=== PATIENT | male | born 1945 | race African-American/Black ===

== ENCOUNTER 2017-05-28 23:35 | Inpatient (IN) | payer OTHER, MEDICAID ==
[~2017-05-28] VITALS: Ht 177.8 cm; Wt 118.6 kg
[2017-05-29 07:58] LABS: BASOPHILS % 0.7 % (0.0-2.0); EOSINOPHILS % 1.6 % (0.0-5.0); HEMATOCRIT. 42.2 % (42.0-52.0); HEMOGLOBIN. 14.1 g/dL (14.0-18.0); LYMPHOCYTES % 38.1 % (20.0-50.0); MEAN CORPUSCULAR HEMOGLOBIN 31.7 pg (28.0-32.0); MEAN CORPUSCULAR VOLUME 94.6 fL (80.0-94.0); MONOCYTES % 7.7 % (2.0-8.0); NEUTROPHILS % 51.9 % (40.0-76.0); PLATELET 154 x1000/uL (130-400); RED BLOOD CELL COUNT 4.46 mill/uL (4.7-6.1); RED CELL DISTRIBUTION WIDTH 14.2 % (11.6-14.6)
[2017-05-29 08:05] LABS: INR 1.2; PARTIAL THROMBOPLASTIN TIME 25.7 sec (23.4-31.0); PROTHROMBIN TIME 12.7 sec (9.4-11.6)
[2017-05-29 08:22] LABS: CARBON DIOXIDE 26 mEq/L (21-32); CHLORIDE 103 mEq/L (98-107)
[2017-05-29 08:25] LABS: TROPONIN I 0.02 ng/mL (0.00-0.04)
[2017-05-29] MEDS ORDERED: CEFTRIAXONE 2 G PREMIX 50 ML IV ONE (08:45)
[2017-05-29] MEDS ORDERED: AZITHROMYCIN 500 MG in DEXT 5% WATER 250 ML IV ONE (08:45)
[2017-05-29] MEDS ORDERED: ONDANSETRON HCL 4MG/2ML VIAL IV PRN (10:30)
[2017-05-29] MEDS ORDERED: MAGNESIUM/ALUMINUM HYDROXIDE/SIMETHICONE 30ML UDC PO PRN (10:30)
[2017-05-29] MEDS ORDERED: DOCUSATE SODIUM 100MG CAPSULE PO PRN (10:30)
[2017-05-29] MEDS ORDERED: IPRATROPIUM/ALBUTEROL 0.5-3(2.5)MG/3ML NEB INH PRN (10:30)
[2017-05-29] MEDS ORDERED: LORAZEPAM 2MG/ML CPJ IV PRN (10:30)
[2017-05-29] MEDS ORDERED: DIPHENHYDRAMINE 50MG/ML VIAL IV PRN (10:30)
[2017-05-29] MEDS ORDERED: ACETAMINOPHEN 325MG TABLET PO PRN (10:30)
[2017-05-29] MEDS ORDERED: IOHEXOL-350 100 ML BOTTLE ONE (11:38)
[2017-05-29 12:51] LABS: CHLORIDE 102 mEq/L (98-107)
[2017-05-29 12:59] LABS: CARBON DIOXIDE 28 mEq/L (21-32)
[2017-05-29] MEDS ORDERED: LEVOFLOXACIN 500MG PREMIX 100 ML IV NR (13:03)
[2017-05-29] MEDS: LEVOFLOXACIN 500MG PREMIX 100 ML IV SCH (13:20)
[2017-05-29 19:30] VITALS: BP 163/79
[2017-05-29 20:00] VITALS: BP 191/114
[2017-05-29] MEDS ORDERED: NA PHOS,M-B/NA PHOS,DI-BA ENEMA 118ML PR PRN (21:00)
[2017-05-29] MEDS: HYDROCODONE/ACETAMINOPHEN 5/325MG TABLET PO PRN (22:34)
[2017-05-30] VITALS (7 sets, daily range): BP systolic 125–179; BP diastolic 73–93
[2017-05-30 06:24] LABS: BASOPHILS % 0.5 % (0.0-2.0); EOSINOPHILS % 2.1 % (0.0-5.0); HEMOGLOBIN. 13.1 g/dL (14.0-18.0); LYMPHOCYTES % 46.8 % (20.0-50.0); MEAN CORPUSCULAR HEMOGLOBIN 31.8 pg (28.0-32.0); MEAN CORPUSCULAR VOLUME 94.8 fL (80.0-94.0); MEAN PLATELET VOLUME 9.9 fl (7.4-10.4); MONOCYTES % 7.9 % (2.0-8.0); NEUTROPHILS % 42.7 % (40.0-76.0); PLATELET 116 x1000/uL (130-400); RED BLOOD CELL COUNT 4.12 mill/uL (4.7-6.1); RED CELL DISTRIBUTION WIDTH 13.8 % (11.6-14.6)
[2017-05-30 08:38] LABS: CHLORIDE 105 mEq/L (98-107)
[2017-05-30] MEDS: CLONIDINE 0.1MG TABLET PO PRN ×2 (09:14→18:41)
[2017-05-30] MEDS: GUAIFENESIN 200MG/10ML SUGAR FREE UDC PO PRN ×2 (09:14→21:19)
[2017-05-30] MEDS: MORPHINE SULFATE 4 MG/ML CPJ (NOT FOR IM USE) IV PRN ×3 (09:15→18:42)
[2017-05-30 09:38] LABS: CARBON DIOXIDE 25 mEq/L (21-32); HDL CHOLESTEROL 35 mg/dL (40-59); LDL CHOLESTEROL 68 mg/dL (5-100)
[2017-05-30] MEDS ORDERED: POTASSIUM CHLORIDE 20MEQ TABLET SR PO NR (11:00)
[2017-05-30] MEDS: ENOXAPARIN 30MG/0.3ML SYR SUBCUT SCH ×2 (11:30→21:15)
[2017-05-30] MEDS ORDERED: INFLUENZA VIRUS VACCINE 0.5ML SYR IM ONE (12:00)
[2017-05-30 12:17] LABS: T4 FREE 1.04 ng/dL (0.76-1.46)
[2017-05-30 14:11] LABS: CLARITY URINE TURBID (CLEAR); COLOR URINE DARK YELLOW (YELLOW); KETONES URINE NEGATIVE (NEGATIVE); LEUKOCYTE ESTERASE URINE TRACE (NEGATIVE); NITRITE URINE NEGATIVE (NEGATIVE); OCCULT BLOOD URINE NEGATIVE (NEGATIVE); PH URINE 5.5 (4.5-8.0); PROTEIN URINE TRACE (NEGATIVE); SPECIFIC GRAVITY URINE 1.024 (1.005-1.030); UROBILINOGEN URINE 0.2 E.U./dL (0.2-1.0)
[2017-05-30] MEDS: METHYLPREDNISOLONE SOD SUCC 40 MG/ML VIAL IV SCH ×2 (14:17→21:56)
[2017-05-30] MEDS: NICOTINE 14MG PATCH TD SCH (14:18)
[2017-05-30] MEDS: LEVOFLOXACIN 500MG PREMIX 100 ML IV SCH (14:19)
[2017-05-30 14:36] LABS: *AMPHETAMINES SCREEN URINE NEGATIVE (NEGATIVE); *BARBITURATES SCREEN URINE NEGATIVE (NEGATIVE); *BENZODIAZEPINES SCREEN URINE NEGATIVE (NEGATIVE); *COCAINE SCREEN URINE NEGATIVE (NEGATIVE); CANNABINOID URINE SCREEN NEGATIVE (NEGATIVE); METHADONE URINE SCREEN NEGATIVE (NEGATIVE); OPIATES URINE SCREEN PRESUMTIVE POSITIVE (NEGATIVE); PHENCYCLIDINE URINE SCREEN NEGATIVE (NEGATIVE)
[2017-05-30] MEDS: IPRATROPIUM/ALBUTEROL 0.5-3(2.5)MG/3ML NEB HHN SCH ×2 (15:55→20:48)
[2017-05-30 17:14] LABS: AMMONIA 41 uMol/L (<32)
[2017-05-30 17:40] LABS: CREATINE KINASE 106 IU/L (39-308); CREATINE KINASE MB FRACTION 1.6 ng/mL (0.5-3.6); TROPONIN I < 0.02 ng/mL (0.00-0.04)
[2017-05-30] MEDS: BUDESONIDE 0.5MG/2ML NEB HHN SCH (20:48)
[2017-05-31] MEDS: IPRATROPIUM/ALBUTEROL 0.5-3(2.5)MG/3ML NEB HHN SCH ×4 (00:10→20:53)
[2017-05-31 00:32] VITALS: BP 159/83
[2017-05-31 01:26] LABS: CREATINE KINASE 86 IU/L (39-308); CREATINE KINASE MB FRACTION 1.6 ng/mL (0.5-3.6); TROPONIN I < 0.02 ng/mL (0.00-0.04)
[2017-05-31 04:00] VITALS: BP 180/99
[2017-05-31] MEDS: CLONIDINE 0.1MG TABLET PO PRN ×3 (04:55→17:24)
[2017-05-31] MEDS: MORPHINE SULFATE 4 MG/ML CPJ (NOT FOR IM USE) IV PRN (05:11)
[2017-05-31] MEDS: METHYLPREDNISOLONE SOD SUCC 40 MG/ML VIAL IV SCH ×2 (06:38→13:19)
[2017-05-31 08:00] VITALS: BP 174/88
[2017-05-31] MEDS: BUDESONIDE 0.5MG/2ML NEB HHN SCH ×2 (08:19→20:53)
[2017-05-31 08:58] LABS: CREATINE KINASE 76 IU/L (39-308); CREATINE KINASE MB FRACTION 1.6 ng/mL (0.5-3.6); TROPONIN I < 0.02 ng/mL (0.00-0.04)
[2017-05-31] MEDS: ENOXAPARIN 30MG/0.3ML SYR SUBCUT SCH ×2 (09:52→21:04)
[2017-05-31] MEDS: AMLODIPINE 10MG TABLET PO SCH (09:52)
[2017-05-31] MEDS: NICOTINE 14MG PATCH TD SCH (09:52)
[2017-05-31 11:50] VITALS: BP 169/99
[2017-05-31] MEDS: HYDRALAZINE HCL 50MG TABLET PO SCH ×2 (13:23→21:03)
[2017-05-31] MEDS: HYDROCODONE/ACETAMINOPHEN 5/325MG TABLET PO PRN (14:28)
[2017-05-31] MEDS: LACTULOSE 20G/30ML UDC PO SCH (14:28)
[2017-05-31] MEDS: GUAIFENESIN 200MG/10ML SUGAR FREE UDC PO PRN (14:28)
[2017-05-31 15:20] VITALS: BP 170/93
[2017-05-31 20:03] VITALS: BP 134/81
[2017-05-31] MEDS ORDERED: PREDNISONE 20MG TABLET PO SCH (21:00)
[2017-05-31] MEDS ORDERED: METHYLPREDNISOLONE SOD SUCC 40 MG/ML VIAL IV SCH (21:00)
[2017-06-01 00:55] VITALS: BP 124/63
[2017-06-01] MEDS: IPRATROPIUM/ALBUTEROL 0.5-3(2.5)MG/3ML NEB HHN SCH ×2 (01:43→09:30)
[2017-06-01 04:00] VITALS: BP 151/85
[2017-06-01] MEDS: HYDRALAZINE HCL 50MG TABLET PO SCH ×2 (06:18→13:17)
[2017-06-01 06:25] LABS: HEMATOCRIT 38.9 % (42.0-52.0); HEMOGLOBIN 13.1 g/dL (14.0-18.0); MEAN CORPUSCULAR HEMOGLOBIN 32.2 pg (28.0-32.0); MEAN CORPUSCULAR VOLUME 95.5 fL (80.0-94.0); PLATELET 129 x1000/uL (130-400); RED BLOOD CELL COUNT 4.07 mill/uL (4.7-6.1); RED CELL DISTRIBUTION WIDTH 14.1 % (11.6-14.6)
[2017-06-01 07:25] LABS: CHLORIDE 105 mEq/L (98-107)
[2017-06-01] MEDS ORDERED: GUAIFENESIN/CODEINE 100-10MG/5ML UDC PO NR (07:45)
[2017-06-01 07:46] LABS: CARBON DIOXIDE 23 mEq/L (21-32)
[2017-06-01] MEDS: LACTULOSE 20G/30ML UDC PO SCH (07:58)
[2017-06-01] MEDS: ENOXAPARIN 30MG/0.3ML SYR SUBCUT SCH (07:58)
[2017-06-01 08:02] VITALS: BP 164/94
[2017-06-01] MEDS: NICOTINE 14MG PATCH TD SCH (08:08)
[2017-06-01] MEDS: AMLODIPINE 10MG TABLET PO SCH (08:09)
[2017-06-01 11:58] VITALS: BP 164/72
[2017-06-01] MEDS: BUDESONIDE 0.5MG/2ML NEB HHN SCH (12:15)
[2017-06-01 15:00] VITALS: BP 132/70
== END 2017-06-01 16:30 | disposition home or self-care (01) | DRG 193 ==
LOC: ER 05-29 00:16 → 6WST 05-29 08:52 → EDBEDREQTM 05-29 08:54 → EDBEDREQ 05-29 08:54 → ENRESERV 05-29 16:35
PROVIDERS: ADMIT Internal Medicine; ATTEND Internal Medicine
DX: J12.9 Viral pneumonia, unspecified (principal); J96.00 Acute respiratory failure, unspecified whether with hypoxia or hypercapnia; D69.59 Other secondary thrombocytopenia; E87.70 Fluid overload, unspecified; J44.0 Chronic obstructive pulmonary disease with (acute) lower respiratory infection; I11.9 Hypertensive heart disease without heart failure; K70.30 Alcoholic cirrhosis of liver without ascites; D50.9 Iron deficiency anemia, unspecified; F10.10 Alcohol abuse, uncomplicated; I25.10 Atherosclerotic heart disease of native coronary artery without angina pectoris; R73.9 Hyperglycemia, unspecified; E87.6 Hypokalemia; M71.22 Synovial cyst of popliteal space [Baker], left knee; E78.5 Hyperlipidemia, unspecified; F17.210 Nicotine dependence, cigarettes, uncomplicated; Z82.49 Family history of ischemic heart disease and other diseases of the circulatory system; Z86.718 Personal history of other venous thrombosis and embolism
CPT/HCPCS: 36415; 71045; 71275; 80048; 80053; 80061; 80305; 81001; 82140; 82270; 82550; 82553; 83036; 83605; 83690; 83735; 83880; 84132; 84439; 84443; 84484; 85025; 85027; 85379; 85610; 85730; 87040; 87086; 87804; 90686; 93005; 93306; 93970; 94640; 94664; 96365; 96367; 99285; J0456; J0696; J1650; J1956; J2270; J2920; J7050; J7060; J7620; J7626; Q9967

== ENCOUNTER 2017-07-05 19:04 | Emergency (ER) | payer OTHER, MEDICAID ==
[~2017-07-05] VITALS: Ht 177.8 cm; Wt 122.0 kg
[2017-07-05] MEDS ORDERED: KETOROLAC 30MG/ML VIAL IV STA (20:16)
[2017-07-05 20:50] LABS: CHLORIDE 102 mEq/L (98-107)
[2017-07-05 20:51] LABS: BASOPHILS % 0.5 % (0.0-2.0); EOSINOPHILS % 0.5 % (0.0-5.0); HEMATOCRIT. 40.8 % (42.0-52.0); LYMPHOCYTES % 37.4 % (20.0-50.0); MEAN CORPUSCULAR HEMOGLOBIN 32.4 pg (28.0-32.0); MEAN CORPUSCULAR VOLUME 94.8 fL (80.0-94.0); MEAN PLATELET VOLUME 8.7 fl (7.4-10.4); MONOCYTES % 8.3 % (2.0-8.0); NEUTROPHILS % 53.3 % (40.0-76.0); PLATELET 114 x1000/uL (130-400); RED CELL DISTRIBUTION WIDTH 13.9 % (11.6-14.6)
[2017-07-05] MEDS ORDERED: MORPHINE SULFATE 4 MG/ML CPJ (NOT FOR IM USE) IV ONE (21:45)
[2017-07-05] MEDS ORDERED: ONDANSETRON HCL 4MG/2ML VIAL IV ONE (21:45)
[2017-07-05] MEDS ORDERED: IOHEXOL-300 100 ML BOTTLE ONE (21:59)
[2017-07-05 22:28] LABS: CLARITY URINE CLEAR (CLEAR); COLOR URINE YELLOW (YELLOW); KETONES URINE NEGATIVE (NEGATIVE); LEUKOCYTE ESTERASE URINE NEGATIVE (NEGATIVE); NITRITE URINE NEGATIVE (NEGATIVE); OCCULT BLOOD URINE NEGATIVE (NEGATIVE); PROTEIN URINE NEGATIVE (NEGATIVE); SPECIFIC GRAVITY URINE 1.052 (1.005-1.030); UROBILINOGEN URINE 0.2 E.U./dL (0.2-1.0)
[2017-07-06 04:34] VITALS: BP 154/88
== END 2017-07-06 04:34 | disposition home or self-care (01) ==
LOC: ER 20:08
DX: S32.028A Other fracture of second lumbar vertebra, initial encounter for closed fracture (principal); R07.9 Chest pain, unspecified; M79.602 Pain in left arm; R10.9 Unspecified abdominal pain; M54.2 Cervicalgia; I10 Essential (primary) hypertension; G89.29 Other chronic pain; F17.200 Nicotine dependence, unspecified, uncomplicated; V89.2XXA Person injured in unspecified motor-vehicle accident, traffic, initial encounter; Y93.89 Activity, other specified; Y92.89 Other specified places as the place of occurrence of the external cause; Y99.8 Other external cause status
CPT/HCPCS: 36415; 71260; 72125; 73030; 73130; 74177; 80053; 81003; 85025; 86850; 86900; 86901; 93005; 96374; 96375; 99285; J1885; J2270; J2405; Q9967

== ENCOUNTER 2018-11-11 17:29 | Inpatient (IN) | payer OTHER, MEDICAID ==
[~2018-11-11] VITALS: Ht 177.8 cm; Wt 129.7 kg
[2018-11-11] MEDS ORDERED: SODIUM CHLORIDE 0.9% 1,000 ML IV ONE (18:13)
[2018-11-11] MEDS ORDERED: ONDANSETRON HCL 4MG/2ML INJ IV STA (18:13)
[2018-11-11] MEDS ORDERED: MORPHINE SULFATE 4 MG/ML CPJ (NOT FOR IM USE) IV STA (18:13)
[2018-11-11 18:45] LABS: BASOPHILS % 0.6 % (0.0-2.0); EOSINOPHILS % 2.6 % (0.0-5.0); HEMATOCRIT. 37.5 % (42.0-52.0); HEMOGLOBIN. 12.5 g/dL (14.0-18.0); LYMPHOCYTES % 39.1 % (20.0-50.0); MEAN CORPUSCULAR HEMOGLOBIN 30.5 pg (28.0-32.0); MEAN CORPUSCULAR VOLUME 91.1 fL (80.0-94.0); MEAN PLATELET VOLUME 8.4 fl (7.4-10.4); MONOCYTES % 8.3 % (2.0-8.0); NEUTROPHILS % 49.4 % (40.0-76.0); PLATELET 180 x1000/uL (130-400); RED BLOOD CELL COUNT 4.11 mill/uL (4.7-6.1)
[2018-11-11 18:51] LABS: CHLORIDE 110 mEq/L (98-107)
[2018-11-11 19:01] LABS: D-DIMER 4.36 mg/L FEU (<0.50); INR 1.3; PARTIAL THROMBOPLASTIN TIME 29.3 sec (23.4-31.0); PROTHROMBIN TIME 13.1 sec (9.6-11.0)
[2018-11-11 19:20] LABS: CLARITY URINE CLEAR (CLEAR); COLOR URINE DARK YELLOW (YELLOW); KETONES URINE NEGATIVE (NEGATIVE); LEUKOCYTE ESTERASE URINE NEGATIVE (NEGATIVE); NITRITE URINE NEGATIVE (NEGATIVE); OCCULT BLOOD URINE 1+ (NEGATIVE); PROTEIN URINE NEGATIVE (NEGATIVE)
[2018-11-11] MEDS ORDERED: HYDRALAZINE 20MG/ML VIAL IV ONE (20:00)
[2018-11-11] MEDS ORDERED: IOHEXOL-350 100 ML BOTTLE ONE (21:38)
[2018-11-11] MEDS ORDERED: MORPHINE SULFATE 4 MG/ML CPJ (NOT FOR IM USE) IV ONE (22:00)
[2018-11-11] MEDS ORDERED: ASPIRIN 325MG EC TABLET PO ONE (22:00)
[2018-11-11] MEDS ORDERED: CLONIDINE 0.2MG TABLET PO ONE (22:00)
[2018-11-12] VITALS (7 sets, daily range): BP systolic 132–167; BP diastolic 63–76
[2018-11-12] MEDS ORDERED: MAGNESIUM/ALUMINUM HYDROXIDE/SIMETHICONE 30ML UDC PO PRN (01:30)
[2018-11-12] MEDS ORDERED: ACETAMINOPHEN 325MG TABLET PO PRN (01:30)
[2018-11-12] MEDS ORDERED: ACETAMINOPHEN 650MG SUPP PR PRN (01:30)
[2018-11-12] MEDS ORDERED: HYDROCODONE/ACETAMINOPHEN 5/325MG TABLET PO PRN (01:30)
[2018-11-12] MEDS ORDERED: ACETAMINOPHEN 650MG/20.3ML UDC GT PRN (01:30)
[2018-11-12] MEDS ORDERED: GUAIFENESIN 200MG/10ML SUGAR FREE UDC PO PRN (01:30)
[2018-11-12] MEDS ORDERED: IPRATROPIUM/ALBUTEROL 0.5-3(2.5)MG/3ML NEB INH PRN (01:30)
[2018-11-12] MEDS ORDERED: DOCUSATE SODIUM 100MG CAPSULE PO PRN (01:30)
[2018-11-12] MEDS ORDERED: NA PHOS,M-B/NA PHOS,DI-BA ENEMA 118ML PR PRN (01:30)
[2018-11-12] MEDS ORDERED: ONDANSETRON HCL 4MG/2ML INJ IV PRN (01:30)
[2018-11-12] MEDS ORDERED: DEXTROSE 50% WATER 50ML SYRINGE IV PRN (01:30)
[2018-11-12] MEDS ORDERED: DIPHENHYDRAMINE 50MG/ML VIAL IV PRN (01:30)
[2018-11-12] MEDS ORDERED: HYDR-4009 MT (04:21)
[2018-11-12] MEDS ORDERED: HYDR-4009 PO (04:24)
[2018-11-12] MEDS: SODIUM CHLORIDE 0.9% INJ 3ML FLUSH IVF SCH ×3 (05:30→20:56)
[2018-11-12] MEDS: HYDROCODONE/ACETAMINOPHEN 10/325MG TABLET PO PRN ×2 (05:30→12:58)
[2018-11-12] MEDS: BLOOD SUGAR DIAGNOSTIC STRIP TEST SCH ×4 (06:11→20:54)
[2018-11-12] MEDS: INSULIN LISPRO 100 UNITS/ML SUBCUT SCH ×4 (06:26→22:00)
[2018-11-12 06:52] LABS: CLARITY URINE CLEAR (CLEAR); COLOR URINE YELLOW (YELLOW); KETONES URINE TRACE (NEGATIVE); LEUKOCYTE ESTERASE URINE NEGATIVE (NEGATIVE); NITRITE URINE NEGATIVE (NEGATIVE); OCCULT BLOOD URINE NEGATIVE (NEGATIVE); PROTEIN URINE NEGATIVE (NEGATIVE); SPECIFIC GRAVITY URINE 1.078 (1.005-1.030)
[2018-11-12 07:06] LABS: *AMPHETAMINES SCREEN URINE NEGATIVE (NEGATIVE); *BARBITURATES SCREEN URINE NEGATIVE (NEGATIVE); *BENZODIAZEPINES SCREEN URINE NEGATIVE (NEGATIVE); METHADONE URINE SCREEN NEGATIVE (NEGATIVE); OPIATES URINE SCREEN PRESUMTIVE POSITIVE (NEGATIVE)
[2018-11-12 07:07] LABS: CANNABINOID URINE SCREEN NEGATIVE (NEGATIVE); PHENCYCLIDINE URINE SCREEN NEGATIVE (NEGATIVE)
[2018-11-12 07:12] LABS: *COCAINE SCREEN URINE NEGATIVE (NEGATIVE)
[2018-11-12 08:23] LABS: CREATINE KINASE 99 IU/L (39-308)
[2018-11-12 08:24] LABS: CREATINE KINASE MB FRACTION 1.7 ng/mL (0.5-3.6)
[2018-11-12] MEDS: ASPIRIN 81MG EC TABLET PO SCH (09:29)
[2018-11-12] MEDS: FUROSEMIDE 40MG/4ML VIAL IVP SCH (09:29)
[2018-11-12] MEDS: LIDOCAINE 5% PATCH TOP SCH (10:48)
[2018-11-12 11:40] LABS: T4 FREE 1.23 ng/dL (0.76-1.46)
[2018-11-12] MEDS ORDERED: REGADENOSON 0.4 MG/5 ML IV NR (16:30)
[2018-11-12 17:31] LABS: CREATINE KINASE 81 IU/L (39-308)
[2018-11-12 17:33] LABS: CREATINE KINASE MB FRACTION < 1.0 ng/mL (0.5-3.6)
[2018-11-12] MEDS: CLONIDINE 0.1MG TABLET PO PRN (20:55)
[2018-11-13] VITALS: BP 150/76
[2018-11-13 04:00] VITALS: BP 163/77
[2018-11-13] MEDS: CLONIDINE 0.1MG TABLET PO PRN (05:17)
[2018-11-13] MEDS: HYDROCODONE/ACETAMINOPHEN 10/325MG TABLET PO PRN ×2 (05:18→14:03)
[2018-11-13] MEDS: SODIUM CHLORIDE 0.9% INJ 3ML FLUSH IVF SCH ×2 (05:19→13:56)
[2018-11-13] MEDS: BLOOD SUGAR DIAGNOSTIC STRIP TEST SCH ×3 (07:08→17:18)
[2018-11-13] MEDS: INSULIN LISPRO 100 UNITS/ML SUBCUT SCH ×4 (07:15→17:34)
[2018-11-13 08:00] VITALS: BP 121/82
[2018-11-13 08:00] LABS: BASOPHILS % 0.5 % (0.0-2.0); EOSINOPHILS % 2.6 % (0.0-5.0); HEMATOCRIT. 38.4 % (42.0-52.0); HEMOGLOBIN. 12.4 g/dL (14.0-18.0); LYMPHOCYTES % 33.3 % (20.0-50.0); MEAN CORPUSCULAR HEMOGLOBIN 29.7 pg (28.0-32.0); MEAN CORPUSCULAR VOLUME 91.7 fL (80.0-94.0); MONOCYTES % 8.5 % (2.0-8.0); NEUTROPHILS % 55.1 % (40.0-76.0); PLATELET 168 x1000/uL (130-400); RED BLOOD CELL COUNT 4.19 mill/uL (4.7-6.1); RED CELL DISTRIBUTION WIDTH 14.1 % (11.6-14.6)
[2018-11-13 08:37] LABS: CHLORIDE 106 mEq/L (98-107)
[2018-11-13 08:58] LABS: LDL CHOLESTEROL 97 mg/dL (5-100)
[2018-11-13 08:59] LABS: HDL CHOLESTEROL 36 mg/dL (40-59)
[2018-11-13] MEDS: ASPIRIN 81MG EC TABLET PO SCH (09:00)
[2018-11-13] MEDS: FUROSEMIDE 40MG/4ML VIAL IVP SCH (09:48)
[2018-11-13] MEDS: LIDOCAINE 5% PATCH TOP SCH (09:50)
[2018-11-13 12:00] VITALS: BP 135/61
[2018-11-13 16:00] VITALS: BP 150/72
[2018-11-13] MEDS ORDERED: FURO-151 MT (16:22)
[2018-11-13] MEDS ORDERED: ASPI-1158 PO (16:22)
[2018-11-13 18:04] VITALS: BP 150/72
== END 2018-11-13 19:10 | disposition home or self-care (01) | DRG 204 ==
LOC: ER 18:51 → 5WST 22:18 → EDBEDREQTM 22:25 → EDBEDREQ 22:25 → CANRESERV 22:28 → ENRESERV 22:28
PROVIDERS: ADMIT Family Medicine; ATTEND Family Medicine
DX: R07.81 Pleurodynia (principal); Z68.41 Body mass index [BMI] 40.0-44.9, adult; E11.9 Type 2 diabetes mellitus without complications; E78.5 Hyperlipidemia, unspecified; K74.60 Unspecified cirrhosis of liver; D64.9 Anemia, unspecified; F17.210 Nicotine dependence, cigarettes, uncomplicated; I10 Essential (primary) hypertension; Z60.2 Problems related to living alone
CPT/HCPCS: 36415; 71045; 71275; 74177; 76700; 78452; 80061; 80305; 82550; 82553; 82962; 83036; 83880; 84439; 84443; 84484; 85379; 93005; 93017; 93306; 93970; 99285; A9500; J0360; J1815; J1940; J2270; J2405; J7030; Q9967

== ENCOUNTER 2019-02-04 11:03 | Emergency (ER) | payer OTHER, MEDICAID ==
[~2019-02-04] VITALS: Ht 177.8 cm; Wt 123.0 kg
[~2019-02-04 11:03] MED LIST: ASPI-1158 PO; FURO-151 MT; HYDR-4009 PO
[2019-02-04 13:47] LABS: BASOPHILS % 0.5 % (0.0-2.0); EOSINOPHILS % 1.3 % (0.0-5.0); HEMATOCRIT. 43.8 % (42.0-52.0); HEMOGLOBIN. 14.7 g/dL (14.0-18.0); LYMPHOCYTES % 38.9 % (20.0-50.0); MEAN CORPUSCULAR HEMOGLOBIN 30.3 pg (28.0-32.0); MEAN CORPUSCULAR VOLUME 90.6 fL (80.0-94.0); MEAN PLATELET VOLUME 9.1 fl (7.4-10.4); MONOCYTES % 7.2 % (2.0-8.0); NEUTROPHILS % 52.1 % (40.0-76.0); PLATELET 132 x1000/uL (130-400); RED BLOOD CELL COUNT 4.84 mill/uL (4.7-6.1); RED CELL DISTRIBUTION WIDTH 15.2 % (11.6-14.6)
[2019-02-04 13:54] LABS: CHLORIDE 104 mEq/L (98-107)
[2019-02-04 14:35] VITALS: BP 168/98
== END 2019-02-04 14:45 | disposition home or self-care (01) ==
LOC: ER 11:48
DX: M79.662 Pain in left lower leg (principal); M25.562 Pain in left knee; R42 Dizziness and giddiness; I10 Essential (primary) hypertension; F17.200 Nicotine dependence, unspecified, uncomplicated
CPT/HCPCS: 36415; 71045; 83880; 84484; 93005; 93971; 99284

== ENCOUNTER 2020-08-01 15:39 | Emergency (ER) | payer OTHER, MEDICAID ==
[~2020-08-01] VITALS: Ht 177.8 cm; Wt 120.0 kg
[~2020-08-01 15:39] MED LIST changes: -ASPI-1158 PO; +ASPI-1406 PO
[2020-08-01 15:54] VITALS: BP 170/85
[2020-08-01] MEDS ORDERED: CHLO3800 TP (17:38)
== END 2020-08-01 18:00 | disposition home or self-care (01) ==
LOC: ER 15:39
DX: K13.70 Unspecified lesions of oral mucosa (principal); I10 Essential (primary) hypertension; Z98.890 Other specified postprocedural states; Z59.0 Homelessness; Z79.899 Other long term (current) drug therapy
CPT/HCPCS: 99281

== ENCOUNTER 2021-02-02 19:32 | Inpatient (IN) | payer OTHER, MEDICAID ==
[~2021-02-02] VITALS: Ht 177.8 cm; Wt 117.9 kg
[~2021-02-02 19:32] MED LIST changes: +CHLO3800 TP
[2021-02-03 00:26] LABS: BASOPHILS % 0.5 % (0.0-2.0); EOSINOPHILS % 0.9 % (0.0-5.0); HEMATOCRIT. 38.4 % (42.0-52.0); LYMPHOCYTES % 26.6 % (20.0-50.0); MEAN CORPUSCULAR HEMOGLOBIN 30.7 pg (28.0-32.0); MEAN PLATELET VOLUME 9.5 fl (7.4-10.4); MONOCYTES % 14.7 % (2.0-8.0); NEUTROPHILS % 57.3 % (40.0-76.0); PLATELET 142 x1000/uL (130-400); RED BLOOD CELL COUNT 4.22 mill/uL (4.7-6.1); RED CELL DISTRIBUTION WIDTH 16.3 % (11.6-14.6)
[2021-02-03 00:32] LABS: CHLORIDE 103 mEq/L (98-107)
[2021-02-03 00:36] LABS: INR 1.6; PROTHROMBIN TIME 16.7 sec (9.6-11.0)
[2021-02-03 00:37] LABS: CLARITY URINE CLEAR (CLEAR); COLOR URINE DARK YELLOW (YELLOW); KETONES URINE 1+ (NEGATIVE); LEUKOCYTE ESTERASE URINE TRACE (NEGATIVE); NITRITE URINE POSITIVE (NEGATIVE); OCCULT BLOOD URINE NEGATIVE (NEGATIVE); PH URINE 5.5 (4.5-8.0); PROTEIN URINE 1+ (NEGATIVE)
[2021-02-03] MEDS ORDERED: SODIUM CHLORIDE 0.9% 1,000 ML IV ONE (00:45)
[2021-02-03] MEDS ORDERED: PIPERACILLIN/TAZ 3.375G PREMIX 50 ML IV ONE (04:15)
[2021-02-03] MEDS ORDERED: SODIUM CHLORIDE 0.9% 1000ML BAG (SEPSIS BOLUS) IV ONE (04:15)
[2021-02-03] MEDS ORDERED: HYDRALAZINE HCL 10MG TABLET PO PRN (05:15)
[2021-02-03 09:00] VITALS: BP 170/98
[2021-02-03] MEDS ORDERED: MORPHINE SULFATE 2 MG/ML CPJ (NOT FOR IM USE) IV NR (10:00)
[2021-02-03] MEDS: AMLODIPINE 10MG TABLET PO SCH (10:03)
[2021-02-03] MEDS ORDERED: ACETAMINOPHEN 325MG TABLET PO PRN (11:00)
[2021-02-03] MEDS ORDERED: GUAIFENESIN 200MG/10ML SUGAR FREE UDC PO PRN (11:00)
[2021-02-03] MEDS ORDERED: MAGNESIUM/ALUMINUM HYDROXIDE/SIMETHICONE 30ML UDC PO PRN (11:00)
[2021-02-03] MEDS ORDERED: ONDANSETRON HCL 4MG/2ML INJ IV PRN (11:00)
[2021-02-03] MEDS ORDERED: IPRATROPIUM/ALBUTEROL 0.5-3(2.5)MG/3ML NEB NEB PRN (11:00)
[2021-02-03] MEDS ORDERED: DIPHENHYDRAMINE 50MG/ML VIAL IV PRN (11:00)
[2021-02-03] MEDS ORDERED: ACETAMINOPHEN 650MG SUPP PR PRN (11:00)
[2021-02-03] MEDS: DEXT 5%/0.45% NACL 1000ML 1,000 ML IV SCH (11:00)
[2021-02-03] MEDS ORDERED: DOCUSATE SODIUM 100MG CAPSULE PO PRN (11:00)
[2021-02-03] MEDS ORDERED: HYDROCODONE/ACETAMINOPHEN 5/325MG TABLET PO PRN (11:00)
[2021-02-03] MEDS ORDERED: LORAZEPAM 0.5MG TABLET PO PRN (11:00)
[2021-02-03] MEDS ORDERED: NA PHOS,M-B/NA PHOS,DI-BA ENEMA 118ML PR PRN (11:00)
[2021-02-03] MEDS ORDERED: NALOXONE HCL 0.4MG/ML VIAL IV PRN (11:15)
[2021-02-03] MEDS: FAMOTIDINE 20MG/2ML VIAL IV SCH (11:49)
[2021-02-03 12:00] VITALS: BP 156/86
[2021-02-03 13:39] LABS: INR 1.6; PROTHROMBIN TIME 16.7 sec (9.6-11.0)
[2021-02-03] MEDS ORDERED: PHYTONADIONE 10MG/ML AMP SUBCUT NR (14:45)
[2021-02-03 16:00] VITALS: BP 179/98
[2021-02-03] MEDS ORDERED: CEFTRIAXONE 1 G PREMIX 50 ML IV SCH (16:00)
[2021-02-03] MEDS ORDERED: CEFTRIAXONE 1,000 MG in DEXTROSE 5% WATER 50 ML IV SCH (17:00)
[2021-02-03] MEDS: CLONIDINE 0.1MG TABLET PO PRN (19:00)
[2021-02-03 19:30] LABS: HEPATITIS B SURFACE ANTIGEN NEGATIVE
[2021-02-03 20:00] VITALS: BP 143/81
[2021-02-04] VITALS (7 sets, daily range): BP systolic 140–157; BP diastolic 77–88
[2021-02-04] MEDS: MORPHINE SULFATE 2 MG/ML CPJ (NOT FOR IM USE) IV PRN ×4 (01:22→22:18)
[2021-02-04 06:22] LABS: INR 1.5; PROTHROMBIN TIME 15.8 sec (9.6-11.0)
[2021-02-04 06:29] LABS: CHLORIDE 103 mEq/L (98-107)
[2021-02-04 06:30] LABS: BASOPHILS % 0.5 % (0.0-2.0); EOSINOPHILS % 1.8 % (0.0-5.0); HEMATOCRIT. 35.5 % (42.0-52.0); HEMOGLOBIN. 11.8 g/dL (14.0-18.0); LYMPHOCYTES % 29.3 % (20.0-50.0); MEAN CORPUSCULAR HEMOGLOBIN 30.1 pg (28.0-32.0); MEAN CORPUSCULAR VOLUME 90.8 fL (80.0-94.0); MEAN PLATELET VOLUME 9.6 fl (7.4-10.4); NEUTROPHILS % 55.4 % (40.0-76.0); PLATELET 142 x1000/uL (130-400); RED BLOOD CELL COUNT 3.91 mill/uL (4.7-6.1); RED CELL DISTRIBUTION WIDTH 16.6 % (11.6-14.6)
[2021-02-04 06:43] LABS: HDL CHOLESTEROL 27 mg/dL (40-59); LDL CHOLESTEROL 100 mg/dL (5-100)
[2021-02-04 06:45] LABS: T4 FREE 1.66 ng/dL (0.76-1.46)
[2021-02-04] MEDS: DEXT 5%/0.45% NACL 1000ML 1,000 ML IV SCH ×2 (07:00→21:58)
[2021-02-04] MEDS ORDERED: LIDOCAINE HCL 1% 20ML VIAL (Pyxis) INJ ONE (08:31)
[2021-02-04] MEDS ORDERED: SODIUM BICARBONATE 4% (2.4MEQ) 5ML VIAL IV ONE (08:31)
[2021-02-04] MEDS: AMLODIPINE 10MG TABLET PO SCH (09:43)
[2021-02-04] MEDS: FAMOTIDINE 20MG/2ML VIAL IV SCH ×2 (09:47→22:01)
[2021-02-04] MEDS ORDERED: PHYTONADIONE 10MG/ML AMP SUBCUT NR (11:00)
[2021-02-04] MEDS ORDERED: IOHEXOL-350 100 ML BOTTLE ONE (12:42)
[2021-02-04] MEDS: PIPERACILLIN/TAZOBACTAM 3.375 G in DEXTROSE 5% WATER 50 ML IV SCH ×2 (15:02→21:58)
[2021-02-04] MEDS: ENOXAPARIN 120MG/0.8ML SYR SUBCUT SCH (18:38)
[2021-02-05] VITALS (7 sets, daily range): BP systolic 135–167; BP diastolic 75–88
[2021-02-05] MEDS: CLONIDINE 0.1MG TABLET PO PRN (00:13)
[2021-02-05] MEDS: ENOXAPARIN 120MG/0.8ML SYR SUBCUT SCH (04:54)
[2021-02-05] MEDS: PIPERACILLIN/TAZOBACTAM 3.375 G in DEXTROSE 5% WATER 50 ML IV SCH ×3 (06:01→22:05)
[2021-02-05] MEDS: DEXT 5%/0.45% NACL 1000ML 1,000 ML IV SCH ×2 (06:01→17:14)
[2021-02-05] MEDS: MORPHINE SULFATE 2 MG/ML CPJ (NOT FOR IM USE) IV PRN ×3 (06:12→22:10)
[2021-02-05] MEDS: AMLODIPINE 10MG TABLET PO SCH (09:00)
[2021-02-05] MEDS: FAMOTIDINE 20MG/2ML VIAL IV SCH ×2 (09:06→22:06)
[2021-02-05 17:39] LABS: BASOPHILS % 0.4 % (0.0-2.0); EOSINOPHILS % 1.5 % (0.0-5.0); HEMATOCRIT. 36.6 % (42.0-52.0); HEMOGLOBIN. 12.1 g/dL (14.0-18.0); LYMPHOCYTES % 28.3 % (20.0-50.0); MEAN CORPUSCULAR VOLUME 90.7 fL (80.0-94.0); MEAN PLATELET VOLUME 9.7 fl (7.4-10.4); MONOCYTES % 11.3 % (2.0-8.0); NEUTROPHILS % 58.5 % (40.0-76.0); PLATELET 166 x1000/uL (130-400); RED BLOOD CELL COUNT 4.04 mill/uL (4.7-6.1)
[2021-02-05 17:50] LABS: CHLORIDE 103 mEq/L (98-107)
[2021-02-05] MEDS ORDERED: POTASSIUM CHLORIDE 20MEQ TABLET SR PO NR (19:30)
[2021-02-05 20:59] LABS: INR 1.5; PROTHROMBIN TIME 15.3 sec (9.6-11.0)
[2021-02-06] VITALS: BP 161/89
[2021-02-06] MEDS: CLONIDINE 0.1MG TABLET PO PRN (01:19)
[2021-02-06] MEDS: MORPHINE SULFATE 2 MG/ML CPJ (NOT FOR IM USE) IV PRN ×5 (01:20→23:13)
[2021-02-06] MEDS: DEXT 5%/0.45% NACL 1000ML 1,000 ML IV SCH ×3 (02:09→22:18)
[2021-02-06 04:00] VITALS: BP 141/87
[2021-02-06] MEDS: PIPERACILLIN/TAZOBACTAM 3.375 G in DEXTROSE 5% WATER 50 ML IV SCH ×3 (05:27→22:12)
[2021-02-06 08:00] VITALS: BP 147/82
[2021-02-06] MEDS: AMLODIPINE 10MG TABLET PO SCH (08:41)
[2021-02-06] MEDS: FAMOTIDINE 20MG/2ML VIAL IV SCH ×2 (08:43→22:12)
[2021-02-06 12:00] VITALS: BP 148/74
[2021-02-06] MEDS ORDERED: APIX5TAB MT (14:37)
[2021-02-06] MEDS ORDERED: FAMO-135 PO (14:37)
[2021-02-06] MEDS ORDERED: AMOX-424 MT (14:37)
[2021-02-06 16:00] VITALS: BP 151/87
[2021-02-06 17:30] LABS: CHLORIDE 104 mEq/L (98-107)
[2021-02-06 17:41] LABS: BASOPHILS % 0.6 % (0.0-2.0); EOSINOPHILS % 1.5 % (0.0-5.0); HEMATOCRIT. 34.7 % (42.0-52.0); HEMOGLOBIN. 11.8 g/dL (14.0-18.0); LYMPHOCYTES % 27.1 % (20.0-50.0); MEAN CORPUSCULAR HEMOGLOBIN 30.4 pg (28.0-32.0); MEAN CORPUSCULAR VOLUME 89.7 fL (80.0-94.0); MEAN PLATELET VOLUME 9.9 fl (7.4-10.4); MONOCYTES % 12.6 % (2.0-8.0); NEUTROPHILS % 58.2 % (40.0-76.0); PLATELET 151 x1000/uL (130-400); RED BLOOD CELL COUNT 3.87 mill/uL (4.7-6.1); RED CELL DISTRIBUTION WIDTH 16.2 % (11.6-14.6)
[2021-02-06 20:00] VITALS: BP 158/80
[2021-02-07] VITALS: BP 159/82
[2021-02-07 04:00] VITALS: BP 157/88
[2021-02-07 08:00] VITALS: BP 155/72
[2021-02-07] MEDS: AMLODIPINE 10MG TABLET PO SCH (08:54)
[2021-02-07] MEDS: DEXT 5%/0.45% NACL 1000ML 1,000 ML IV SCH (08:55)
[2021-02-07] MEDS: FAMOTIDINE 20MG/2ML VIAL IV SCH (08:55)
[2021-02-07] MEDS: MORPHINE SULFATE 2 MG/ML CPJ (NOT FOR IM USE) IV PRN (09:31)
[2021-02-07 12:00] VITALS: BP 146/85
[2021-02-07 12:04] VITALS: BP 146/83
== END 2021-02-07 13:25 | disposition home or self-care (01) | DRG 444 ==
LOC: ER 19:32 → 6EST 02-03 03:45 → EDBEDREQTM 02-03 03:48 → EDBEDREQ 02-03 03:48 → ENRESERV 02-03 05:12
PROVIDERS: ADMIT Internal Medicine; ATTEND Internal Medicine
DX: K81.0 Acute cholecystitis (principal); E43 Unspecified severe protein-calorie malnutrition; I81 Portal vein thrombosis; K55.059 Acute (reversible) ischemia of intestine, part and extent unspecified; D68.9 Coagulation defect, unspecified; N39.0 Urinary tract infection, site not specified; I82.412 Acute embolism and thrombosis of left femoral vein; R18.8 Other ascites; I82.432 Acute embolism and thrombosis of left popliteal vein; K74.60 Unspecified cirrhosis of liver; I11.0 Hypertensive heart disease with heart failure; I50.9 Heart failure, unspecified; D64.9 Anemia, unspecified; Z20.822 Contact with and (suspected) exposure to COVID-19; F17.210 Nicotine dependence, cigarettes, uncomplicated; E78.5 Hyperlipidemia, unspecified; K82.8 Other specified diseases of gallbladder; R16.2 Hepatomegaly with splenomegaly, not elsewhere classified; D73.5 Infarction of spleen; R73.9 Hyperglycemia, unspecified; R91.8 Other nonspecific abnormal finding of lung field; Z53.8 Procedure and treatment not carried out for other reasons; Z79.899 Other long term (current) drug therapy; Z79.82 Long term (current) use of aspirin; Z82.49 Family history of ischemic heart disease and other diseases of the circulatory system; Z71.6 Tobacco abuse counseling; Z68.37 Body mass index [BMI] 37.0-37.9, adult; F10.11 Alcohol abuse, in remission; Z86.19 Personal history of other infectious and parasitic diseases; E80.6 Other disorders of bilirubin metabolism
CPT/HCPCS: 36415; 71045; 71270; 74177; 74178; 76700; 78227; 80053; 80061; 80076; 81003; 82105; 82378; 83605; 84439; 84443; 85025; 86705; 86709; 86803; 87077; 87340; 87426; 93005; 93306; 93970; 97162; 97535; 99291; A9537; J0696; J1650; J2270; J2543; J3430; J3490; J7030; J7060; Q9967